=== PATIENT | female | born 1960 | race Native Hawaiian/Other Pacific Islander ===

== ENCOUNTER 2023-10-11 10:42 | Emergency (ER) | payer MEDICAID ==
--- NOTE | 2023-10-11 11:47 | ED Physician Documentation ---
History of Present Illness - Stated complaint Stated Complaint: VOMITING - Chief complaint Chief Complaint: Abd Pain - History obtained from History obtained from: Family, Other (Patient's point lay ira language is [facility], daughters at bedside provide translation. History is also limited as patient has a history of vascular dementia.) - Additonal information Additional information: Patient is a 63-year-old female, from [facility], history of vascular dementia with psychotic features (per document from the [facility] that daughters have brought with them) presenting for evaluation of weakness with nausea and vomiting.Daughter states that last week patient was having increased paranoia and not eating or drinking very much as she was concerned family members were poisoning her. This weekend she developed vomiting. She has been complaining that her head is hurting. They do have medications to help with her psychiatric symptoms but states they only give this to her as needed and she had been doing well up until recently. Patient is able to answer her name. Understands some commands in Slovak. Review of Systems Unable to obtain: Dementia PD PAST MEDICAL HISTORY - Past Medical History Past Medical History: Yes BREAKDOWN MAN: Ovarian cancer - Past Surgical History Past Surgical History: Yes - Present Medications Home Medications: Ambulatory Orders Medication Instructions Recorded Confirmed Fluoxetine HCl [Prozac] 40 mg PO DAILY 10/11/23 10/11/23 diphenhydrAMINE [Benadryl] 25 mg PO ONCE 10/11/23 10/11/23 risperiDONE [Risperdal] 2 mg PO DAILY 10/11/23 10/11/23 - Allergies Allergies/Adverse Reactions: Allergies Allergy/AdvReac Type Severity Reaction Status Date / Time No Known Drug Allergies Allergy Verified 10/11/23 11:08 - Social History Does the pt smoke?: No Smoking Status: Never smoker Does the pt drink ETOH?: No Does the pt have substance abuse?: No - Immunizations Immunizations are current?: Yes PD ED PE NORMAL - General General: No acute distress, Well developed/nourished. No: Alert and oriented X 3 (Alert and oriented to person only) - HEENT HEENT: Atraumatic, PERRL, Pharynx benign - Neck Neck: Supple, no meningeal sign - Cardiac Cardiac: RRR, Strong equal pulses - Respiratory Respiratory: No respiratory distress, Clear bilaterally - Abdomen Abdomen: Normal bowel sounds, Soft, Non distended, Other (Suprapubic tenderness) - Derm Derm: Warm and dry - Neuro Neuro: No motor deficit, Normal speech. No: Alert and oriented X 3 (Alert and oriented to person only) Results - Vitals Vitals: Vital Signs - 24 hr 10/11/23 10/11/23 10/11/23 11:04 13:08 13:51 Temperature 36.7 C Heart Rate 77 68 Heart Rate [ 71 Sitting] Heart Rate [ 77 Standing] Heart Rate [ 66 Supine] Respiratory 20 17 Rate Blood Pressure 87/48 L 126/79 Blood Pressure 139/89 H [Sitting] Blood Pressure 137/82 H [Standing] Blood Pressure 132/83 H [Supine] O2 Saturation 97 99 10/11/23 10/11/23 15:00 17:00 Temperature Heart Rate 68 70 Heart Rate [ Sitting] Heart Rate [ Standing] Heart Rate [ Supine] Respiratory 19 17 Rate Blood Pressure 151/83 H 118/59 L Blood Pressure [Sitting] Blood Pressure [Standing] Blood Pressure [Supine] O2 Saturation 98 96 Oxygen O2 Source Room air - EKG (time done) 1214 EKG releavant findings:: EKG personally interpreted by author of this note. Relevant findings are: Rate 68, normal sinus rhythm, no STEMI, QTc 423 - Labs Labs: Laboratory Tests 10/11/23 10/11/23 10/11/23 11:31 11:49 11:49 WBC 8.1 RBC 5.19 Hgb 14.5 Hct 45.5 MCV 87.7 MCH 27.9 MCHC 31.9 L RDW 11.9 L Plt Count 213 MPV 9.8 Neut # (Auto) 6.9 H Lymph # (Auto) 0.6 L Clayton # (Auto) 0.5 Eos # (Auto) 0.0 Baso # (Auto) 0.0 Absolute Nucleated RBC 0.00 Nucleated RBC % 0.0 PT INR Sodium 131 L Potassium 3.3 L Chloride 94 L Carbon Dioxide 29 Anion Gap 8.0 BUN 18 Creatinine 0.8 Estimated GFR (MDRD) 72 L Glucose 106 H POC Whole Bld Glucose 112 H Lactic Acid Calcium 9.4 Total Bilirubin 2.1 H AST 6957 H ALT > 5000 H Alkaline Phosphatase 93 Troponin I High Sens Total Protein 7.3 Albumin 3.8 Globulin 3.5 Albumin/Globulin Ratio 1.1 Lipase 66 Urine Color Urine Clarity Urine pH Ur Specific [place] Urine Protein Urine Glucose (UA) Urine Ketones Urine Occult Blood Urine Nitrite Urine Bilirubin Urine Urobilinogen Ur Leukocyte Esterase Urine RBC Urine WBC Ur Squamous Epith Cells Urine Bacteria Urine Mucus Ur Microscopic Review Urine Culture Comments Acetaminophen 10/11/23 10/11/23 10/11/23 11:49 11:49 13:00 WBC RBC Hgb Hct MCV MCH MCHC RDW Plt Count MPV Neut # (Auto) Lymph # (Auto) Clayton # (Auto) Eos # (Auto) Baso # (Auto) Absolute Nucleated RBC Nucleated RBC % PT INR Sodium Potassium Chloride Carbon Dioxide Anion Gap BUN Creatinine Estimated GFR (MDRD) Glucose POC Whole Bld Glucose Lactic Acid 1.4 Calcium Total Bilirubin AST ALT Alkaline Phosphatase Troponin I High Sens 7.3 Total Protein Albumin Globulin Albumin/Globulin Ratio Lipase Urine Color DARK YELLOW Urine Clarity CLEAR Urine pH 6.5 Ur Specific [place] 1.025 Urine Protein 100 H Urine Glucose (UA) NEGATIVE Urine Ketones TRACE Urine Occult Blood LARGE H Urine Nitrite NEGATIVE Urine Bilirubin MODERATE H Urine Urobilinogen 4 H Ur Leukocyte Esterase NEGATIVE Urine RBC 0-5 Urine WBC 0-3 Ur Squamous Epith Cells NONE SEEN Urine Bacteria Few Urine Mucus Moderate Strands Ur Microscopic Review INDICATED Urine Culture Comments NOT INDICATED Acetaminophen 10/11/23 10/11/23 13:18 13:18 WBC RBC Hgb Hct MCV MCH MCHC RDW Plt Count MPV Neut # (Auto) Lymph # (Auto) Clayton # (Auto) Eos # (Auto) Baso # (Auto) Absolute Nucleated RBC Nucleated RBC % PT 18.3 H INR 1.7 H Sodium Potassium Chloride Carbon Dioxide Anion Gap BUN Creatinine Estimated GFR (MDRD) Glucose POC Whole Bld Glucose Lactic Acid Calcium Total Bilirubin AST ALT Alkaline Phosphatase Troponin I High Sens Total Protein Albumin Globulin Albumin/Globulin Ratio Lipase Urine Color Urine Clarity Urine pH Ur Specific [place] Urine Protein Urine Glucose (UA) Urine Ketones Urine Occult Blood Urine Nitrite Urine Bilirubin Urine Urobilinogen Ur Leukocyte Esterase Urine RBC Urine WBC Ur Squamous Epith Cells Urine Bacteria Urine Mucus Ur Microscopic Review Urine Culture Comments Acetaminophen 2.7 PD Medical Decision Making - ED course Complexity details: reviewed results, re-evaluated patient, d/w family ED course: Patient is a 63-year-old female from the [facility], presenting for evaluation of decreased oral intake last week along with nausea and vomiting over the weekend. History significant for vascular dementia with some psychiatric features. She does also have a prior history of alcohol abuse but has not been drinking for at least for the last 7 years. No significant acetaminophen use. Patient did reported headache so CT head was obtained which does not show signs of intracranial hemorrhage but there is an old infarct which I did review with the family. She does not have any focal deficits here. CBC, chemistry, urinalysis were obtained and reviewed and she has markedly elevated liver enzymes with no prior for comparison. CT of the abdomen pelvis was obtained without any irregularities noted in the liver. Her INR is elevated at 1.7. Discussed with GI as well as hepatology and patient has been accepted for transfer to the [facility] For further workup with concerns for liver failure. Will plan to repeat labs in the morning if patient is still here. Patient to be signed out to oncoming provider at shift change. We have reached out to [facility] who also has hepatology but have not heard back yet. 1430 - D/W GI at [facility] - Recommend speaking To hepatology at [facility] or [facility] as there may be a concern for liver failure. 1524 - D/W Hepatology at (Dr. Montague) - Recommends transfer to tertiary care facility with hepatology. If transfer will take some days does recommend some labs including BONIFACIO, smooth muscle, serum IgG. Could also consider cardiac echo.Per transfer center they are boarding patients but will try to increase the priority for this patient as she is more mission specific. However they do recommend reaching out to other tertiary care facilities with hepatology such as [facility]. 1602 - D/W Hospitalist at (Dr. Mejia) - Accepts patient for transfer. Recommends rechecking labs in the morning if she has not yet been transferred. If her INR is rising they will increase her priority level. Departure - Departure Disposition: 02 Transfer Acute Care Hosp Clinical Impression: Elevated INR, Liver failure Condition: Fair Forms: PCP List
--- NOTE | 2023-10-11 11:54 | XRAY Report ---
PROCEDURE: Chest 1V INDICATIONS: weakness TECHNIQUE: One view of the chest was acquired. COMPARISON: None. FINDINGS: Surgical changes and devices: None. Lungs and pleura: No pleural effusions or pneumothorax. Lungs are clear. Mediastinum: Mediastinal contours appear normal. Heart size is normal. Bones and chest wall: No suspicious bony lesions. Overlying soft tissues appear unremarkable. IMPRESSION: No acute cardiopulmonary process. Reviewed by: Nestor Carver MD on 10/11/2023 11:53 AM PDT Approved by: Nestor Carver MD on 10/11/2023 11:53 AM PDT Station ID: [id number]
[2023-10-11 11:58] LABS: BASOPHILS % (AUTO) 0.4 %; HCT - HEMATOCRIT 45.5 % (37.0-47.0); HGB - HEMOGLOBIN 14.5 g/dL (12.0-16.0); LYMPHOCYTES # (AUTO) 0.6 10^3/uL (1.5-3.5); LYMPHOCYTES % (AUTO) 7.9 %; MEAN CORPUSCULAR HEMOGLOBIN 27.9 pg (27.0-31.0); MEAN CORPUSCULAR HGB CONC 31.9 g/dL (32.0-36.0); MEAN CORPUSCULAR VOLUME 87.7 fL (81.0-99.0); MEAN PLATELET VOLUME 9.8 fL (7.9-10.8); MONOCYTES # (AUTO) 0.5 10^3/uL (0.0-1.0); MONOCYTES % (AUTO) 5.8 %; NEUTROPHILS # (AUTO) 6.9 10^3/uL (1.5-6.6); NEUTROPHILS % (AUTO) 85.5 %; PLT - PLATELET COUNT 213 10^3/uL (130-450); RED BLOOD COUNT 5.19 10^6/uL (4.20-5.40); RED CELL DISTRIBUTION WIDTH 11.9 % (12.0-15.0); WHITE BLOOD COUNT 8.1 x10^3/uL (4.8-10.8)
--- NOTE | 2023-10-11 12:06 | CT Report ---
PROCEDURE: Head WO INDICATIONS: headache TECHNIQUE: Noncontrast 4.5 mm thick angled axial sections acquired from the foramen magnum to the vertex. For r adiation dose reduction, the following was used: automated exposure control, adjustment of mA and/or kV according to patient size. COMPARISON: None. FINDINGS: Image quality: Excellent. CSF spaces: Basal cisterns are patent. No extra-axial fluid collections. Ventricles are normal in size and shape. Brain: Moderate to large left MCA territory infarction is seen with encephalomalacia. Age-related vol ume loss and mild periventricular and deep white matter chronic small vessel ischemic changes are see n. No midline shift. No intracranial masses or hemorrhage. Mosqueda-white matter interface is normal. Skull and face: Calvarium and visualized facial bones are intact, without suspicious lesions. Sinuses: Visualized sinuses and mastoids are clear. IMPRESSION: 1. No acute intracranial pathology. 2. 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 3. Age-related volume loss and white matter chronic small vessel ischemic changes. Reviewed by: Nestor Carver MD on 10/11/2023 12:04 PM PDT Approved by: Nestor Carver MD on 10/11/2023 12:04 PM PDT Station ID: [id number]
[2023-10-11 12:12] LABS: LIPASE 66 U/L (11-82)
[2023-10-11] MEDS: SODIUM CHLORIDE 0.9% 1,000 ML IV STA (12:14)
[2023-10-11] MEDS: ONDANSETRON 4 MG/2 ML VIAL IVP STA (12:14)
[2023-10-11 12:27] LABS: ALBUMIN 3.8 g/dL (3.2-5.5); ALBUMIN/GLOBULIN RATIO 1.1 (1.0-2.2); ALKALINE PHOSPHATASE 93 IU/L (42-121); ALT ALANINE AMINOTRANSFERASE > 5000 IU/L (10-60); AST ASPARTATE AMINOTRANSFERASE 6957 IU/L (10-42); BILIRUBIN,TOTAL 2.1 mg/dL (0.2-1.0); BUN - BLOOD UREA NITROGEN 18 mg/dL (6-20); CALCIUM 9.4 mg/dL (8.5-10.3); CARBON DIOXIDE - CO2 29 mmol/L (21-32); CHLORIDE 94 mmol/L (101-111); CREATININE 0.8 mg/dL (0.6-1.3); GFR - MDRD 72 (>89); GLUCOSE 106 mg/dL (74-104); POTASSIUM 3.3 mmol/L (3.5-4.5); SODIUM 131 mmol/L (135-145); TOTAL PROTEIN 7.3 g/dL (6.4-8.9)
[2023-10-11] MEDS ORDERED: iohexoL-300 100 ML VIAL ONE (12:53)
[2023-10-11 13:13] LABS: BILIRUBIN,URINE MODERATE (NEGATIVE); GLUCOSE, URINE (UA) NEGATIVE (NEGATIVE); KETONES,URINE (UA) TRACE mg/dL (NEGATIVE); LEUKOCYTE ESTERASE, URINE NEGATIVE (NEGATIVE); NITRITE,URINE NEGATIVE (NEGATIVE); OCCULT BLOOD,URINE LARGE (NEGATIVE); PH,URINE 6.5 PH (5.0-7.5); PROTEIN,URINE 100 mg/dL (NEGATIVE); UROBILINOGEN,URINE 4 E.U./dL (NORMAL)
[2023-10-11 13:15] LABS: CLARITY,URINE CLEAR (CLEAR)
[2023-10-11 13:27] LABS: BACTERIA,URINE Few /HPF (None Seen); RBC,URINE 0-5 /HPF (0-5); SQUAMOUS EPITHELIAL CELL,UR NONE SEEN (<= Few); WBC,URINE 0-3 /HPF (0-5)
[2023-10-11 13:28] LABS: MUCUS,URINE Moderate Strands
[2023-10-11 13:33] LABS: INR 1.7 (0.8-1.2); PT - PROTHROMBIN TIME 18.3 secs (9.9-12.6)
--- NOTE | 2023-10-11 13:46 | CT Report ---
PROCEDURE: Abdomen/Pelvis W INDICATIONS: vomiting/elevated lfts CONTRAST: 100ml [id number] TECHNIQUE: After the administration of intravenous contrast, a CT scan of the abdomen and pelvis was performed. Images were recorded and evaluated at appropriate window settings. Reformats: coronal and sagittal. F or radiation dose reduction, the following was used: automated exposure control, adjustment of mA and /or kV according to patient size. COMPARISON: None. FINDINGS: Image quality: Diagnostic. Lower chest: Bibasilar dependent atelectasis is seen. Heart size is mildly enlarged, no pericardial e ffusion.. Liver: No solid mass. Gallbladder: No radiopaque stones or wall thickening. Biliary tree: No intrahepatic or extrahepatic dilation, accounting for age. Spleen: No splenomegaly. Pancreas: No pancreatic ductal dilation. Adrenals: No adrenal nodule. Kidneys and ureters: No hydronephrosis. No renal cystic lesion which requires follow up. No solid mas s. Stomach, bowel and peritoneum: There is no bowel obstruction. Questionable distal gastric wall thicke chai and wall thickening involving proximal duodenum is seen. No other area of abnormal bowel wall th ickening. No abscess collection. No free fluid of free air. Lymph nodes: No central or retroperitoneal adenopathy. Vessels: No infrarenal aortic aneurysm. Patent portal vein.Moderate atherosclerotic calcifications ar e noted in abdominal aorta. Mild ectasia of infrarenal abdominal aorta is seen measures up to 2.3 cm in largest AP diameter. PELVIS Reproductive organs: Hysterectomy. Bladder: Diffuse bladder wall thickening is seen, no discrete bladder wall mass. Pelvic lymph nodes: No pelvic adenopathy by size criteria. Bones: No aggressive osseous abnormality. Chronic appearing superior endplate compression deformity a t L1 level is seen with up to 30% loss of L1 vertebral body height anteriorly. Other: No significant ventral or inguinal hernia. IMPRESSION: 1. Questionable wall thickening involving distal stomach wall and first and second portion of duodenu m concerning for gastroenteritis. No bowel obstruction. No other area of abnormal bowel wall thickeni ng. No free fluid of free air. 2. No discrete hepatic lesion. No biliary ductal dilatation. Normal-appearing gallbladder. 3. Mild ectasia of infrarenal abdominal aorta. No abdominal aortic aneurysm. Mild to moderate atheros clerotic disease. 4. Chronic appearing anterior wedge compression deformity at L1 level. Reviewed by: Nestor Carver MD on 10/11/2023 1:45 PM PDT Approved by: Nestor Carver MD on 10/11/2023 1:45 PM PDT Station ID: [id number]
[2023-10-11] MEDS: iohexoL-300 100 ML VIAL IVP ONE (13:59)
[2023-10-11] MEDS: POTASSIUM BICARB 25 MEQ TABLET PO STA (15:28)
--- NOTE | 2023-10-11 20:14 | ED Physician Documentation ---
ED Addendum - Addendum Addendum: 10/11/23 20:18 At this time I spoke with Dr. Gee, hepatology associated with [facility]. His initial impression was that the patient did not need to be transferred. I opined that since the patient is currently in a critical access hospital with no GI or hepatology consultative ability that she should be transferred and he agreed and we are awaiting a callback from the hospitalist. 10/11/23 21:56 She was accepted at this time to [facility] by Dr. Maci Nicholas, net developer consultant there. This is pending bed availability. She did request that we start N- acetylcysteine. Disposition: Transferred to [facility] for higher level of care Condition: Stable Diagnosis: 1. Acute hepatitis
[2023-10-11] MEDS ORDERED: DEXTROSE 5% 500 ML IV ONE (22:38)
[2023-10-11] MEDS ORDERED: DEXTROSE 5% 250 ML IV ONE (22:38)
[2023-10-11] MEDS: ACETYLCYSTEINE IV STA (23:00)
[2023-10-11] MEDS: DEXTROSE 5% IV STA (23:00)
--- NOTE | 2023-10-11 23:15 | ED Physician Documentation ---
ED Addendum - Addendum Addendum: 10/11/23 23:09 I received word that a bed had been assigned for the patient. She has already been accepted as per Dr. Pagan's note and paperwork was completed for her transfer.
[2023-10-12 01:01] VITALS: BP 149/99; O2SAT 94
[2023-10-12] MEDS ORDERED: ACETYLCYSTEINE IV ONE (03:00)
[2023-10-12] MEDS ORDERED: DEXTROSE 5% IV ONE (03:00)
[2023-10-12 06:10] LABS: HBsAG SCREEN Negative (Negative); HCV AB Non Reactive (Non Reactive); HEPATITIS B CORE IGM AB Negative (Negative)
== END 2023-10-12 00:40 | disposition short-term general hospital (02) ==
LOC: ED 10:42
DX: K72.90 Hepatic failure, unspecified without coma (principal); B17.9 Acute viral hepatitis, unspecified; R79.1 Abnormal coagulation profile; F01.52 Vascular dementia, unspecified severity, with psychotic disturbance; Z79.899 Other long term (current) drug therapy
CPT/HCPCS: 36415; 51701; 70450; 71045; 74177; 80053; 80074; 80143; 81001; 83605; 83690; 84484; 85025; 85610; 93005; 96374; 96375; 99285; A9270; J0132; J7060; Q9967; 80048; 80076; 81003; 87086